=== PATIENT | male | born 1990 | race Caucasian/White ===

== ENCOUNTER 2017-05-23 15:43 | Emergency (ER) | payer MEDICAID ==
[2017-05-23 16:01] VITALS: PULSE 78; TEMP 99; O2SAT 98
--- NOTE | 2017-05-23 16:52 | C.PDOC ---
History Of Present Illness 26 yo male w/previous hx of hemorrhoid, come in for evaluation of constipation for past week associated with painful mass noted on defecation today. Pt admits , similar sx in past, last BM " yesterday a little". Otherwise, pt denies fever , chills, abd. pain, N/V, UTI sx, denies rectal bleeding, blood in stool. Pt also reports, " study a lot and lately was unable to concentrate enough". Ambulate to ED for evaluation, not in any apparent distress. Time Seen by Provider: 05/23/17 16:17 Chief Complaint (Nursing): Dizziness/Lightheaded History Per: Patient Past Medical History Reviewed: Historical Data, Nursing Documentation, Vital Signs Vital Signs: Last Vital Signs Temp 99 F 05/23/17 15:57 Pulse 78 05/23/17 15:57 Resp 20 05/23/17 15:57 BP 126/81 05/23/17 15:57 Pulse Ox 98 05/23/17 15:57 - Medical History PMH: No Chronic Diseases Surgical History: No Surg Hx Family History: States: No Known Family Hx - Social History Hx Alcohol Use: No Hx Substance Use: No - Immunization History Hx Influenza Vaccination: No Review Of Systems Except As Marked, All Systems Reviewed And Found Negative. Constitutional: Negative for: Fever, Chills ENT: Negative for: Throat Pain, Throat Swelling Cardiovascular: Negative for: Chest Pain Respiratory: Negative for: Cough, Shortness of Breath, Wheezing Gastrointestinal: Positive for: Constipation, Rectal Pain. Negative for: Nausea , Vomiting, Abdominal Pain, Diarrhea, Melena, Hematochezia, Hematemesis Genitourinary: Negative for: Dysuria, Frequency, Incontinence Musculoskeletal: Negative for: Neck Pain, Back Pain Skin: Negative for: Rash Neurological: Negative for: Weakness, Altered Mental Status, Headache, Dizziness Physical Exam - Physical Exam Appears: Well, Non-toxic, No Acute Distress Skin: Normal Color, Warm, Dry, No Rash Head: Normacephalic Eye(s): bilateral: PERRL Nose: No Discharge Oral Mucosa: Moist Throat: No Erythema, No Exudate Neck: Supple Cardiovascular: Rhythm Regular Respiratory: No Decreased Breath Sounds, No Accessory Muscle Use, No Stridor, No Wheezing Gastrointestinal/Abdominal: Soft, No Tenderness, No Distention, No Guarding Rectal: Rectal Tone (normal), Heme Negative, Hemorrhoids (small external, non- thrombosed) Back: No CVA Tenderness Extremity: Normal ROM, No Pedal Edema Neurological/Psych: Oriented x3, Normal Speech ED Course And Treatment O2 Sat by Pulse Oximetry: 98 Pulse Ox Interpretation: Normal Progress Note: On re-evaluation, pt is afebrile, hemodynamicaly stable. Non- toxic. Tolerate PO well in ED. ENT: no acute findings. neck: Supple, (-) meningeal sign. Abd: benign. recta; exam c/w small hemorrhoids. Pt advised on course of ds. ref. to f/u with PMD, GI in 2-3 days for re-eavl. reutrn to ED if any worsening or new changes. Disposition Counseled Patient/Family Regarding: Diagnosis - Disposition Referrals: [facility] [Outside] Disposition: HOME/ ROUTINE Disposition Time: 16:50 Condition: STABLE Additional Instructions: DIET MODIFICATION TAKE LAXATIVE PRESCRIBED DAILY FOLLOW UP WITH PMD, GI IN 2-3 DAYS FOR RE-EVALUATION. RETURN TO ED IF ANY WORSENING OR NEW CHANGES. Prescriptions: Docusate [Colace] 100 mg PO DAILY #14 cap Hydrocortisone 2.5% (Rectal) [Anusol-HC] 30 applic IA BID #1 tube Polyethylene Glycol 3350 [Miralax] 17 gm PO DAILY #1 bottle Instructions: Hemorrhoids (ED), Constipation (ED), High Fiber Diet (ED) - Clinical Impression Clinical Impression: Constipation, Hemorrhoid
[2017-05-23 17:06] VITALS: BP 121/68; RESP 16
== END 2017-05-23 17:06 | disposition home or self-care (01) ==
LOC: C.ER 15:43
DX: K59.00 Constipation, unspecified (principal); K64.4 Residual hemorrhoidal skin tags

== ENCOUNTER 2017-07-15 13:20 | Emergency (ER) | payer MEDICAID ==
[2017-07-15 13:47] VITALS: RESP 18
[2017-07-15 13:51] VITALS: O2SAT 99
--- NOTE | 2017-07-15 14:31 | C.PDOC ---
History Of Present Illness 27 yo male w/o significant PMHx come in for evaluation of subjective fever, bodyaches, sore throat, dry cough developed for past 2 days. Pt sts, took Ibuprofen early today, now c/o mild epigastric discomfort. Otherwise, denies lethargy, drooling, sever headache, neck pain, CP, SOB, dyspnea, wheezing, v/D, UTI sx. At the time of evaluation, pt is awake, not in any apparent distress. Time Seen by Provider: 07/15/17 13:56 Chief Complaint (Nursing): Flu-like Symptoms History Per: Patient History/Exam Limitations: None Onset/Duration Of Symptoms: Days Current Symptoms Are (Timing): Still Present Quality (Mouth/Throat): Other (sore thorat) Anticoagulant/Antiplatlet Use?: No Recent Aspirin Use: No Past Medical History Reviewed: Historical Data, Nursing Documentation, Vital Signs Vital Signs: Last Vital Signs Temp 99.7 F H 07/15/17 13:45 Pulse 101 H 07/15/17 13:45 Resp 18 07/15/17 13:45 BP 125/78 07/15/17 13:45 Pulse Ox 99 07/15/17 14:46 - Medical History PMH: No Chronic Diseases Surgical History: No Surg Hx Family History: States: Unknown Family Hx - Social History Hx Alcohol Use: No Hx Substance Use: No - Immunization History Hx Influenza Vaccination: No Review Of Systems Constitutional: Positive for: Fever, Other (bodyaches). Negative for: Weakness , Malaise ENT: Positive for: Throat Pain Cardiovascular: Negative for: Chest Pain, Palpitations Respiratory: Positive for: Cough (dry). Negative for: Shortness of Breath Gastrointestinal: Positive for: Abdominal Pain. Negative for: Vomiting, Diarrhea Musculoskeletal: Negative for: Neck Pain, Back Pain Skin: Negative for: Rash Neurological: Negative for: Weakness, Numbness, Headache Physical Exam - Physical Exam Appears: Well, Non-toxic, No Acute Distress Skin: Normal Color, Warm, Dry, No Rash Head: Normacephalic Eye(s): bilateral: PERRL Ear(s): Bilateral: Normal Nose: No Flaring, Discharge (B/l congestion wih scant clear rhinorrhea) Oral Mucosa: Moist, No Drooling Tongue: Normal Appearing Throat: No Erythema, No Drooling Neck: Trachea Midline, Supple Cardiovascular: Rhythm Regular, No Murmur Respiratory: No Decreased Breath Sounds, No Accessory Muscle Use, No Stridor, No Wheezing Gastrointestinal/Abdominal: Soft, No Tenderness, No Distention, No Guarding Back: No CVA Tenderness Extremity: Normal ROM, No Pedal Edema, No Deformity Neurological/Psych: Oriented x3, Normal Speech ED Course And Treatment O2 Sat by Pulse Oximetry: 99 (On RA) Pulse Ox Interpretation: Normal Progress Note: On re-eval, pt is afebrile, hemodynamicaly stable. Tolerate Po well in ED. PulseOx 99% RA. ENT: no acute findings. neck: Supple, (-) meningeal sing. Lungs: CTA B/L, BS equla B/L. Abd: benign. Neurologicaly intact. Pt has cinical findings c/w Influenza-like illness. Pt advised. ref. to f/u with PMD in 2-3 days for re-eval. return if any new changes. Disposition Counseled Patient/Family Regarding: Diagnosis, Need For Followup, Rx Given - Disposition Referrals: Coretta Head APN [Advanced Practice Nurse] - Disposition: HOME/ ROUTINE Disposition Time: 14:36 Condition: STABLE Additional Instructions: ENCOURAGE FLUIDS TAKE MEDICATION PRESCRIBED FOLLOW UP WITH PMD IN 2-3 DAYS FOR RE-EVALUATION. RETURN TO ED IF ANY WORSENING OR NEW CHANGES. Prescriptions: Amoxicillin [Amoxil 500 mg Cap] 500 mg PO TID #21 cap Benzonatate [Tessalon Perle] 100 mg PO TID #14 capsule Oseltamivir Phosphate [Tamiflu] 75 mg PO BID #10 capsule Instructions: Influenza (ED) Forms: [employer] (Uzbek) - Clinical Impression Clinical Impression: Influenza-like illness - PA / [employer] / Resident Statement MD/DO has reviewed & agrees with the documentation as recorded.
[2017-07-15 15:26] VITALS: BP 124/74; PULSE 102; TEMP 98.9
== END 2017-07-15 15:26 | disposition home or self-care (01) ==
LOC: C.ER 13:20
DX: J11.1 Influenza due to unidentified influenza virus with other respiratory manifestations (principal)